=== PATIENT | female | born 2005 | race Caucasian/White ===

== ENCOUNTER 2025-04-25 13:32 | Emergency (ER) | payer MEDICAID ==
[~2025-04-25] VITALS: Ht 149.9 cm; Wt 43.0 kg
[2025-04-25 13:42] VITALS: TEMP 98.2
[2025-04-25 14:15] VITALS: BP 135/78; PULSE 89; RESP 18; O2SAT 98
[2025-04-25] MEDS: IBUPROFEN 600 MG TABLET PO ONE (15:21)
[2025-04-25 16:00] LABS: APPEARANCE,URINE CLEAR (CLEAR); GLUCOSE, URINE (UA) NEGATIVE (NEGATIVE); LEUKOCYTE ESTERASE ,URINE NEGATIVE (NEGATIVE); NITRATE,URINE NEGATIVE (NEGATIVE); OCCULT BLOOD,URINE LARGE (NEGATIVE); SPECIFIC GRAVITIY, URINE 1.036 (1.003-1.030)
[2025-04-25 16:04] LABS: HCG,QUAL URINE NEGATIVE (NEGATIVE)
[2025-04-25 16:09] LABS: SQUAMOUS EPITHELIAL CELL,UR Moderate /LPF (None Seen)
== END 2025-04-25 16:28 | disposition home or self-care (01) ==
LOC: EMS 13:39
DX: L02.214 Cutaneous abscess of groin (principal); R35.0 Frequency of micturition; Z88.0 Allergy status to penicillin
CPT/HCPCS: 81001; 84703; 99283